=== PATIENT | male | born 1955 | race Caucasian/White ===

== ENCOUNTER 2019-01-26 13:11 | Emergency (ER) | payer MEDICAID, OTHER ==
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
--- NOTE | 2019-01-26 13:50 | CT ---
Head wo Cont: 01/26/2019 1:36 PM INDICATION: Seizure-like activity COMPARISON: No relevant priors TECHNIQUE: Axial images from skull base to vertex without the use of IV contrast. Coronal and sagittal reformats were obtained and reviewed FINDINGS: No acute intracranial abnormality. Specifically, there is no evidence of acute infarct, hemorrhage, hydrocephalus, mass, mass effect, midline shift, or extra-axial collections. 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 Moderate hypoattenuation in the subcortical and periventricular white matter, compatible with chronic small vessel ischemic changes. No acute findings involving the orbits. Right sphenoid sinus mucus retention cyst versus polyp. Paranasal sinuses and mastoid air cells are otherwise clear. Calvarium is intact. IMPRESSION: 1. No evidence of acute intracranial abnormality. Please note that CT imaging has limited sensitivity for detection of early ischemic changes, and further assessment with MRI could be helpful in the appropriate clinical setting. 2. Remote right parietotemporal infarct. 3. Moderate cerebral atrophy and chronic small vessel ischemic changes. 4. Small right-sided sphenoid sinus retention cyst versus polyp.
== END 2019-01-26 14:58 | disposition home or self-care (01) ==
LOC: JP.ED 13:11
DX: R56.9 Unspecified convulsions (principal); I10 Essential (primary) hypertension; E78.00 Pure hypercholesterolemia, unspecified; Z79.899 Other long term (current) drug therapy
CPT/HCPCS: 36415; 70450; 70450-26; 80053; 83605; 84146; 84484; 85025; 99285-25